=== PATIENT | male | born 2000 | race Two or more races ===

== ENCOUNTER 2022-01-13 23:51 | Emergency (ER) | payer OTHER ==
[~2022-01-13] VITALS: Ht 177.8 cm; Wt 68.0 kg
[2022-01-14 00:07] VITALS: BP 127/77
[2022-01-14] MEDS ORDERED: CEPH-510 PO (02:42)
[2022-01-14] MEDS ORDERED: ACET-1158 PO (02:42)
[2022-01-14] MEDS ORDERED: TETANUS-DIPTH-ACEL PERTUSSIS 0.5ML SYR Tdap IM ONE (02:45)
== END 2022-01-14 03:19 | disposition home or self-care (01) ==
LOC: ER 23:55
DX: S91.312A Laceration without foreign body, left foot, initial encounter (principal); W26.2XXA Contact with edge of stiff paper, initial encounter; Y93.89 Activity, other specified; Y92.89 Other specified places as the place of occurrence of the external cause; Y99.8 Other external cause status
CPT/HCPCS: 12002; 90471; 90715

== ENCOUNTER 2022-01-23 19:12 | Emergency (ER) | payer OTHER ==
[~2022-01-23] VITALS: Ht 175.3 cm; Wt 68.0 kg
[~2022-01-23 19:12] MED LIST: ACET-1158 PO; CEPH-510 PO
[2022-01-23 19:40] VITALS: BP 135/83
== END 2022-01-23 22:38 | disposition home or self-care (01) ==
LOC: ER 19:12
DX: S91.311D Laceration without foreign body, right foot, subsequent encounter (principal); W26.0XXD Contact with knife, subsequent encounter